=== PATIENT | female | born 1965 | race Caucasian/White ===

== ENCOUNTER 2022-01-03 08:47 | Day surgery (SDC) | payer OTHER ==
[2021-12-31 17:53] VITALS: BMI 26.9
[~2022-01-03 08:47] MED LIST: BUPIVACAINE HCL/PF 0.25% (2.5MG/ML) 10 ML VIAL IJ ONE
[2022-01-03] MEDS ORDERED: BUPIVACAINE HCL/PF 2.5 MG/ML - 30 ML VIAL IJ ONE (09:59)
[2022-01-03] MEDS ORDERED: PROPOFOL 20 ML ONE ×2 (10:41→11:48)
[2022-01-03] MEDS ORDERED: MIDAZOLAM HCL 2 MG/2 ML SINGLE DOSE VIAL ONE (10:42)
[2022-01-03] MEDS ORDERED: BUPIVACAINE HCL/PF 0.25% (2.5MG/ML) 10 ML VIAL IJ ONE (11:48)
[2022-01-03] MEDS ORDERED: ONDANSETRON 4 MG/2 ML VIAL ONE (12:03)
[2022-01-03] MEDS ORDERED: FENTANYL CITRATE/PF 50 MCG/ML VIAL ONE ×3 (12:03→12:31)
[2022-01-03] MEDS ORDERED: ACETAMINOPHEN INJECTION 100 ML IVPB ONE (12:03)
[2022-01-03] MEDS ORDERED: ACETAMINOPHEN 1000 MG/100 ML BAG IVPB ONE (12:07)
[2022-01-03] MEDS ORDERED: oxyCODONE HCL 5 MG TABLET ONE (13:02)
[2022-01-03 13:15] VITALS: PULSE 66; RESP 16; TEMP 97.7
[2022-01-03 14:15] VITALS: BP 140/84
== END 2022-01-03 14:10 | disposition home or self-care (01) ==
LOC: FASU 08:47
PROVIDERS: ATTEND Orthopaedic Surgery
PROC: 0SBC4ZZ Excision of Right Knee Joint, Percutaneous Endoscopic Approach (ICD-10-PCS; 2022-01-03)
PROC: 0SBC4ZZ Excision of Right Knee Joint, Percutaneous Endoscopic Approach (ICD-10-PCS; principal; 2022-01-03 10:15)
DX: S83.241A Other tear of medial meniscus, current injury, right knee, initial encounter (principal); S83.281A Other tear of lateral meniscus, current injury, right knee, initial encounter; S83.8X1A Sprain of other specified parts of right knee, initial encounter; M65.861 Other synovitis and tenosynovitis, right lower leg; X58.XXXA Exposure to other specified factors, initial encounter; Y93.9 Activity, unspecified; Y92.9 Unspecified place or not applicable
CPT/HCPCS: 94760